=== PATIENT | female | born 1995 | race Hispanic/Latino ===

== ENCOUNTER 2022-03-28 19:28 | Emergency (ER) | payer SELFPAY ==
[2022-03-28] MEDS ORDERED: Lidocaine 1% w/Epinephrine 1:100K 20 ML VIAL ONE (19:59)
[2022-03-28] MEDS ORDERED: Boostrix 0.5 ML (Tdap) VIAL (>/=7 yrs of age) ONE (19:59)
[2022-03-28] MEDS ORDERED: Bacitracin 1 PK ONE (20:10)
== END 2022-03-28 20:46 | disposition home or self-care (01) ==
LOC: ERS 19:28
DX: S51.812A Laceration without foreign body of left forearm, initial encounter (principal); W26.0XXA Contact with knife, initial encounter; Z23 Encounter for immunization
CPT/HCPCS: 12002; 90471; 90715

== ENCOUNTER 2023-06-17 00:42 | Emergency (ER) | payer SELFPAY ==
[2023-06-17] MEDS ORDERED: diphenhydrAMINE 25 MG CAP ONE (01:42)
[2023-06-17] MEDS ORDERED: Ketorolac Tromethamine 30 MG (1 mL) VIAL ONE (01:42)
[2023-06-17] MEDS ORDERED: Doxycycline 100 MG CAP ONE (02:02)
== END 2023-06-17 02:16 | disposition home or self-care (01) ==
LOC: ERS 00:42
DX: L03.211 Cellulitis of face (principal); R51.9 Headache, unspecified; F17.210 Nicotine dependence, cigarettes, uncomplicated; F17.290 Nicotine dependence, other tobacco product, uncomplicated
CPT/HCPCS: 96372; J1885

== ENCOUNTER 2023-11-29 13:45 | Emergency (ER) | payer BC, SELFPAY ==
[2023-11-29] MEDS ORDERED: Ketorolac Tromethamine 30 MG (1 mL) VIAL ONE (14:57)
[2023-11-29] MEDS ORDERED: Dexamethasone 10 MG/ML VIAL ONE (14:57)
[2023-11-29] MEDS ORDERED: Orphenadrine Citrate 60 MG/2 ML VIAL ONE (14:58)
== END 2023-11-29 16:12 | disposition home or self-care (01) ==
LOC: ERS 13:45
DX: S39.012A Strain of muscle, fascia and tendon of lower back, initial encounter (principal); F17.210 Nicotine dependence, cigarettes, uncomplicated; F17.290 Nicotine dependence, other tobacco product, uncomplicated; X50.0XXA Overexertion from strenuous movement or load, initial encounter; Y93.89 Activity, other specified
CPT/HCPCS: 72100; 96372; J1100; J1885; J2360